=== PATIENT | male | born 1990 | race African-American/Black ===

== ENCOUNTER 2020-02-14 16:55 | Emergency (ER) | payer MEDICAID, OTHER ==
[~2020-02-14] VITALS: Ht 172.7 cm; Wt 90.7 kg
[2020-02-14 17:18] VITALS: BP 130/87
--- NOTE | 2020-02-14 17:21 | NUR ---
ED Nurse Note:pt. came from home with c/o chest discomfort, VSS, pt. is A/ox4 ambulatory, EKG was done, blood and urine sentto labs
--- NOTE | 2020-02-14 17:57 | Diagnostic Imaging Report ---
EXAM: XR Chest, 1 View CLINICAL HISTORY: SOB TECHNIQUE: Frontal view of the chest. COMPARISON: 05/10/2019. FINDINGS: Lungs: The lungs are well aerated. Pleural space: Unremarkable. No pneumothorax. Heart: Cardiomediastinal silhouette unremarkable. Mediastinum: See above. Bones/joints: The ribs are within normal limits. Gentle S-shaped scoliosis of the thoracic spine. Soft tissues: The soft tissues are within normal limits. IMPRESSION: No active disease, similar to that noted on the previous study.
[2020-02-14 18:00] VITALS: BP 134/71
--- NOTE | 2020-02-14 18:11 | Emergency Room Report ---
History of Present Illness General Chief Complaint: Chest Pain Source: Patient Present Illness HPI 29-year-old otherwise healthy male with no relevant past medical history here with chest tightness and anxiety. Patient says that he drank a heavy amount of alcohol last night. Denies drug use. He says that he awoke this morning and felt "anxious and like my chest was closing in." Says he had this before last time he was in the emergency department here at this hospital, but says that it was because he snorted cocaine before this. Patient however denies any drug use today or yesterday. Says he is asymptomatic now. No fevers, chills, palpitations, shortness of breath, back pain, abdominal pain, lightheadedness, diaphoresis, nausea, vomiting, diarrhea, dysuria. No family history of early heart disease or early cardiac or unexplained . Allergies: Coded Allergies: No Known Allergies (Unverified , 05/10/19) COVID-19 Screening Contact w/high risk pt: No Experienced COVID-19 symptoms?: No COVID-19 Testing performed RADIOLOGIC TECHNOLOGY TEACHER: No Nursing Documentation-[facility] Past Medical History: No Stated History Review of Systems All Other Systems: negative except mentioned in HPI Physical Exam Vital Signs Date Time Temp Pulse Resp B/P (MAP) Pulse Ox O2 Delivery O2 Flow Rate FiO2 02/14/20 16:58 98.2 77 20 130/87 (101) 96 Room Air Sp02 EP Interpretation: reviewed, normal General Appearance: no apparent distress, alert, non-toxic Head: normocephalic, atraumatic Eyes: bilateral eye normal inspection, bilateral eye PERRL ENT: hearing grossly normal, normal pharynx, no angioedema, normal voice Neck: full range of motion, supple/symm/no masses Respiratory: chest non-tender, lungs clear, normal breath sounds, speaking full sentences Cardiovascular #1: regular rate, rhythm, no edema Cardiovascular #2: 2+ carotid (R), 2+ carotid (L), 2+ radial (R), 2+ radial (L), 2+ dorsalis pedis (R), 2+ dorsalis pedis (L) Gastrointestinal: normal bowel sounds, non tender, soft, non-distended, no guarding, no rebound Rectal: deferred Genitourinary: normal inspection, no CVA tenderness Musculoskeletal: back normal, normal range of motion, gait/station normal, non- tender Neurologic: alert, motor strength/tone normal, oriented x3, sensory intact, responsive, speech normal Psychiatric: judgement/insight normal, memory normal, mood/affect normal, no suicidal/homicidal ideation Lymphatic: no adenopathy Medical Decision Making Diagnostic Impression: Primary Impression: Chest pain ER Course EKG: NSR, no ischemia, intervals WNL. No ectopy Rhythm strip: patient monitored for arrhythmias - no malignant dysrhythmias, runs of PVCs, nor pauses noted Chest x-ray: No infiltrate/effusion. Mediastinum within normal limits. No bony abnormalities. No free air under the diaphragm. No acute cardiopulmonary abnormality. Indication chest discomfort 29-year-old otherwise healthy male here with intermittent chest discomfort. Patient was hemodynamically stable and neurovascularly intact in the emergency department. PERC negative. Patient had a heart score of 0. CBC, CMP, troponin all unremarkable. Patient had a completely normal EKG and normal chest x-ray. He will follow-up with his primary care provider. Told to come back to the emergency department he has any worsening palpitations, lightheadedness. He expressed understanding was discharged. Laboratory Tests Test 02/14/20 17:15 White Blood Count 4.9 K/UL (4.8-10.8) Red Blood Count 5.00 M/UL (4.70-6.10) Hemoglobin 15.8 G/DL (14.2-18.0) Hematocrit 46.3 % (42.0-52.0) Mean Corpuscular Volume 92 FL (80-99) Mean Corpuscular Hemoglobin 31.6 PG (27.0-31.0) H Mean Corpuscular Hemoglobin Concent 34.2 G/DL (32.0-36.0) Red Cell Distribution Width 11.6 % (11.6-14.8) Platelet Count 223 K/UL (150-450) Mean Platelet Volume 6.5 FL (6.5-10.1) Neutrophils (%) (Auto) 64.6 % (45.0-75.0) Lymphocytes (%) (Auto) 26.2 % (20.0-45.0) Monocytes (%) (Auto) 6.8 % (1.0-10.0) Eosinophils (%) (Auto) 1.3 % (0.0-3.0) Basophils (%) (Auto) 1.1 % (0.0-2.0) Sodium Level 141 MMOL/L (136-145) Potassium Level 4.0 MMOL/L (3.5-5.1) Chloride Level 104 MMOL/L (98-107) Carbon Dioxide Level 29 MMOL/L (21-32) Anion Gap 9 mmol/L (5-15) Blood Urea Nitrogen 13 mg/dL (7-18) Creatinine 1.0 MG/DL (0.55-1.30) Estimated Glomerular Filtration Rate > 60 mL/min (>60) Glucose Level 128 MG/DL (74-106) H Calcium Level 8.7 MG/DL (8.5-10.1) Total Bilirubin 1.0 MG/DL (0.2-1.0) Aspartate Amino Transferase (AST) 20 U/L (15-37) Alanine Aminotransferase (ALT) 25 U/L (12-78) Alkaline Phosphatase 95 U/L (46-116) Troponin I 0.002 ng/mL (0.000-0.056) Total Protein 7.5 G/DL (6.4-8.2) Albumin 4.0 G/DL (3.4-5.0) Globulin 3.5 g/dL Albumin/Globulin Ratio 1.1 (1.0-2.7) Urine Opiates Screen Negative (NEGATIVE) Urine Barbiturates Screen Negative (NEGATIVE) Phencyclidine (PCP) Screen Negative (NEGATIVE) Urine Amphetamines Screen Negative (NEGATIVE) Urine Benzodiazepines Screen Negative (NEGATIVE) Urine Cocaine Screen Negative (NEGATIVE) Urine Marijuana (THC) Screen Negative (NEGATIVE) Last Vital Signs Date Time Temp Pulse Resp B/P (MAP) Pulse Ox O2 Delivery O2 Flow Rate FiO2 02/14/20 17:18 77 20 Room Air 02/14/20 17:18 98.2 130/87 96 Scripts Lorazepam* (ATIVAN*) 1 Mg Tablet 1 MG ORAL BEDTIME, #5 TAB Prov: Marquis Soriano M.D. 02/14/20 Referrals: NON PHYSICIAN (PCP) Marquis Soriano M.D. Feb 14, 2020 18:11
[2020-02-14 18:27] LABS: ANION GAP 9 mmol/L (5-15); BLOOD UREA NITROGEN 13 mg/dL (7-18); CALCIUM 8.7 MG/DL (8.5-10.1); CARBON DIOXIDE 29 MMOL/L (21-32); CHLORIDE 104 MMOL/L (98-107); SODIUM 141 MMOL/L (136-145)
[2020-02-14 18:32] LABS: ALANINE AMINOTRANSFERASE 25 U/L (12-78); ALBUMIN/GLOBULIN RATIO 1.1 (1.0-2.7); ALKALINE PHOSPHATASE 95 U/L (46-116); ASPARTATE AMINO TRANSFERASE 20 U/L (15-37)
[2020-02-14 18:45] LABS: BASOPHILS % (AUTO) 1.1 % (0.0-2.0); EOSINOPHILS % (AUTO) 1.3 % (0.0-3.0); HEMATOCRIT 46.3 % (42.0-52.0); HEMOGLOBIN 15.8 G/DL (14.2-18.0); LYMPHOCYTES % (AUTO) 26.2 % (20.0-45.0); MEAN CORPUSCULAR VOLUME 92 FL (80-99); MONOCYTES % (AUTO) 6.8 % (1.0-10.0); NEUTROPHILS % (AUTO) 64.6 % (45.0-75.0); PLATELET COUNT 223 K/UL (150-450); RED CELL DISTRIBUTION WIDTH 11.6 % (11.6-14.8); WHITE BLOOD COUNT 4.9 K/UL (4.8-10.8)
[2020-02-14] MEDS ORDERED: ATIVAN1 MG ORAL (18:55)
[2020-02-14 19:10] VITALS: BP 130/87
--- NOTE | 2020-02-14 19:10 | NUR ---
ED Nurse Note: Pt cleared by health care Provider for discharge. DC instructions/prescription was given and explained to pt and verbalized understanding of teachings. All medical deviecs such as ID band removed. Pt is AAO x4, ambulatory and left with all personal belongings.
== END 2020-02-14 19:23 | disposition home or self-care (01) ==
LOC: EMR 17:46
DX: R07.9 Chest pain, unspecified (principal); F41.9 Anxiety disorder, unspecified
CPT/HCPCS: 36415; 71045; 80053; 80307; 84484; 85025; Z7502; 99284